=== PATIENT | male | born 1970 | race Caucasian/White ===

== ENCOUNTER 2016-10-02 23:00 | Inpatient (IN) | payer OTHER ==
[~2016-10-02] VITALS: Ht 185.4 cm; Wt 77.6 kg
--- NOTE | ~2016-10-02 | PN ---
Unit #: [id number] #: [id number] Patient: DOROTHY PHILIPPE [id number] [facility] [address] [place] [address] [id number] MR#: [id number] NAME: DOROTHY PHILIPPE. ROOM: P113 Age: 45 Sex: M Admission Date: 10/03/2016 : 1970 Attending Physician: Di Mac M.D. Admitting Physician: Di Mac M.D. Primary Care Physician: Primary Care Physician Ching MICHAUD NOTES DATE OF SERVICE: 10/04/2016 SUBJECTIVE Mr. Philippe is a 45-year-old white male who was seen today and chart was reviewed, and case was discussed with the staff. He has been anxious, withdrawn, and rather seclusive to himself. Meanwhile, he has been cooperative with treatment recommendations and has been taking the medications and tolerating them fairly well with no reported side effects. MENTAL STATUS EXAMINATION Middle-aged white male who was casually dressed with fair personal hygiene, appears to be in no acute distress or discomfort. He was awake and alert on interaction with intact orientation. His mood was anxious and depressed with a congruent affect. His speech was slow and goal directed. He denies any suicidal or homicidal ideations, and also denies any auditory or visual hallucinations. His insight and judgment remain slightly impaired. TREATMENT PLAN 1. We will continue him on his current medications and treatment protocol. We will monitor his response and make further adjustments as needed. 2. We will continue to follow up. Dictated by... Mathew Em/choco TD: 10/04/2016 11:35 JOB #: [id number] Unit #: [id number] #: [id number] Patient: DOROTHY PHILIPPE PEAHOMAR PROGRESS NOTES Page 1 of 1 X Di Mac MD PROGRESS NOTE
--- NOTE | ~2016-10-02 | DS ---
Unit #: [id number] #: [id number] Patient: DOROTHY HAAS [id number] [facility] [address] [place] [address] [id number] I MR#: [id number] NAME: DOROTHY HAAS. ROOM: [facility] Age: 45 Sex: M Admission Date: 10/03/2016 : 1970 Discharge Date: 10/07/2016 Attending Physician: Di Mac M.D. Primary Care Physician: Primary Care Physician No DISCHARGE SUMMARY IDENTIFYING DATA Mr. Haas is a 45-year-old single white male, who is a resident of [place], [place], and was self-referred to the hospital on a voluntary basis. DISCHARGE DIAGNOSES Psychiatric: Major depressive disorder, recurrent, moderate, without psychotic features. Medical: None. Stressors: Mild psychosocial stressors. HISTORY OF PRESENT ILLNESS Please see initial psychiatric evaluation for details. PAST PSYCHIATRIC HISTORY Please see initial psychiatric evaluation for details. PAST MEDICAL HISTORY Please see initial psychiatric evaluation for details. HOSPITAL COURSE The patient was [facility] and was oriented to the hospital environment. Routine p.r.n. medications were initiated, and he was started back on his home medications and medications were adjusted and he was closely monitored. However, he was refusing to take any antidepressant therapy stating that he is not depressed and was wanting to go home and was denying any suicidal or homicidal ideations and as such, it was decided that he will be discharged home and will continue treatment on an outpatient basis. DISCHARGE MEDICATIONS None. DISCHARGE CONDITION Stable. PROGNOSIS Fair. Dictated by... Di Mac M.D. Unit #: [id number] #: [id number] Patient: DOROTHY HAAS IAA/modl TD: 10/06/2016 07:18 JOB #: [id number] DISCHARGE SUMMARY Page 1 of 1 X Di Mac MD X DISCHARGE SUMMARY
--- NOTE | ~2016-10-02 | HP ---
Unit #: [id number] #: [id number] Patient: ISIAH PHILIPPE [id number] [place] [address] [id number] I MR#: [id number] NAME: ISIAH PHILIPPE. ROOM: 13 Age: 45 Sex: M Admission Date: 10/03/2016 : 1970 Attending Physician: Di Mac M.D. Admitting Physician: Di Mac M.D. Primary Care Physician: Primary Care Physician No HISTORY AND PHYSICAL HISTORY OF PRESENT ILLNESS Isiah is a 45 year old, admitted to [address] [place] [address] with depression and verbalizing wanting to hurt himself. PAST MEDICAL HISTORY Nothing significant. PAST SURGICAL HISTORY Nothing reported. ALLERGIES No known drug allergies. SOCIAL HISTORY He smokes one pack per day, drinks alcohol rarely, denies illicit drug use. FAMILY HISTORY Medically noncontributory. REVIEW OF SYSTEMS CONSTITUTIONAL: No fever or chills. HEENT: Denies any sore throat, ear pain or runny nose. CARDIOVASCULAR: Denies chest pain, irregular heart rhythm or palpitations. CHEST: Denies shortness of breath or cough. No hemoptysis. GASTROINTESTINAL: Denies nausea, vomiting, diarrhea or chronic constipation. ENDOCRINE: Denies history of increased thirst or urination. No recent significant weight loss or gain. GENITOURINARY: Denies dysuria, frequency, or hematuria. SKIN: Denies any rashes. HEMATOLOGIC: Denies history of increased bleeding or bruising. MUSCULOSKELETAL: Denies any hot, swollen joints. No generalized muscle pain. NEUROLOGIC: Denies problems with vision or speech. No frequent, severe headaches. No numbness, tingling or weakness in any extremities. Denies loss of bladder or bowel control. CURRENT MEDICATIONS 1. Milk of magnesia p.r.n. 2. Maalox p.r.n. 3. Tylenol p.r.n. 4. Nicotine patch 14 mg daily Unit #: [id number] #: [id number] Patient: ISIAH PHILIPPE PHYSICAL EXAMINATION GENERAL: Alert, well-nourished, no apparent distress. VITAL SIGNS: Blood pressure 110/70, heart rate 80, respirations 16, and temperature 98.6. WEIGHT: 171 pounds. HEIGHT: 6 feet 1 inch. SKIN: Warm and dry without rash or lesion. HEENT: Normocephalic. TMs not viewed. Oral and nasal passages clear. Conjunctivae clear. PERRLA. EOMs intact. NECK: Supple without lymphadenopathy or thyromegaly. HEART: Regular rate and rhythm without murmur. LUNGS: Clear. ABDOMEN: Soft, nontender. : Not done. EXTREMITIES: No evidence of cyanosis, clubbing or edema. Moves all without focal deficit. NEUROLOGICAL: Grossly within normal limits. Cranial Nerves: II: Visual maldonado are intact. III, IV AND : Extraocular movements are intact. Pupils are equal, round and reactive to light. V: Facial sensation is grossly normal. VII: Facial movements and expression are normal. VIII: Auditory acuity grossly intact. IX, X: Uvula is midline. Phonation is normal. XI: Patient shrugs shoulders and turns head normally. XII: Tongue protrudes in the midline. Sensory and Motor Function: Sensory and motor sensation is grossly normal. Motor: moves all extremities well. Coordination: Gait is normal. Deep Tendon Reflexes: Intact. IMPRESSION Psychiatric admission. RECOMMENDATIONS Psychiatric, per psychiatrist. MEDICAL I see no contraindications to participating in facility's activities. MEDICAL PROGNOSIS Good. MEDICAL CONDITION Stable. Dictated by... Arian LamASumeet. for Mathew Lea/daryn TD: 10/04/2016 13:15 JOB #: [id number] Unit #: [id number] #: [id number] Patient: JOSE MARTINISIAH tEhan HISTORY AND PHYSICAL Page 1 of 1 X Socorro Tran HISTORY AND PHYSICAL
--- NOTE | ~2016-10-02 | PN ---
Unit #: [id number] #: [id number] Patient: DOROTHY HAAS [id number] [facility] [address] [place] [address] [id number] I MR#: [id number] NAME: DOROTHY HAAS. ROOM: P113 Age: 45 Sex: M Admission Date: 10/03/2016 : 1970 Attending Physician: Di Mac M.D. Admitting Physician: Di Mac M.D. Primary Care Physician: Primary Care Physician Ching MICHAUD NOTES DATE OF SERVICE 10/05/2016 DISCUSSION Mr. Haas is a 45-year-old white male who was seen today. Chart was reviewed and case was discussed with the staff. He has been anxious, withdrawn, and rather seclusive to himself. Meanwhile, he has been cooperative with treatment recommendations and has been taking the medications and tolerating them fairly well with no reported side effects. MENTAL STATUS EXAMINATION Middle-aged white male who is casually dressed with fair personal hygiene, appears to be in no acute distress or discomfort. He was awake and alert on interaction with intact orientation. His mood is anxious with congruent affect. His speech is slow and goal-directed. He denies any suicidal or homicidal ideations. His insight and judgment remain slightly impaired. TREATMENT PLAN 1. We will continue him on his current medications and treatment protocol. We will monitor his response to the medications and make further adjustments as needed. 2. We will continue to follow up. Dictated by... Di Mac M.D. IAA/bzg TD: 10/05/2016 11:53 JOB #: [id number] Unit #: [id number] #: [id number] Patient: DOROTHY HAAS KIRAN PROGRESS NOTES Page 1 of 1 X Di Mac MD X PROGRESS NOTE
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
[2016-10-04 12:31] LABS: BASOPHIL# 0.1 X10e3 (0-0.3); BASOPHIL% 0.7 % (0-2.5); EOSINOPHIL# 0.1 X10e3 (0-0.7); EOSINOPHIL% 0.8 % (0.0-7.0); HEMATOCRIT 47.4 % (38.0-50.0); HEMOGLOBIN 15.6 gm/dL (13.0-16.0); LYMPHOCYTE# 1.4 X10e3 (1.0-3.5); LYMPHOCYTE% 14.8 % (17.0-45.0); MEAN CELL VOLUME 90.5 FL (83-96); MEAN CORPUSCULAR HEMOGLOBIN 29.7 PG (28-34); MEAN CORPUSCULAR HGB CONC 32.8 g/dL (30-36); MEAN PLATELET VOLUME 9.8 FL (6.5-11.5); MONOCYTE# 0.7 X10e3 (0-1.0); MONOCYTE% 6.7 % (3.0-12.0); NEUTROPHIL# 7.5 X10e3 (1.5-7.1); PLATELET COUNT 203 X10e3 (140-420); RED BLOOD COUNT 5.24 X10e (3.90-5.60); RED CELL DISTRIBUTION WIDTH 12.7 % (11.0-15.5); WHITE BLOOD COUNT 9.7 X10e3 (4.0-10.5)
[2016-10-04 12:39] LABS: DIFF IND NO
[2016-10-04 12:43] LABS: ALBUMIN SERUM 4.6 g/dL (3.5-5.0); BILIRUBIN,TOTAL 1.1 mg/dL (0.2-2.0); BUN/CREATININE RATIO 18.18; CALCIUM SERUM 9.4 mg/dL (8.4-10.2); CREATININE SERUM 1.1 mg/dL (0.6-1.4); GLOM FILT RATE Estimated 79.5 mL/min (>60); POTASSIUM 4.4 mmol/L (3.5-5.1); PROTEIN TOTAL SERUM 7.3 g/dL (6.0-8.3)
== END 2016-10-07 09:45 | disposition home or self-care (01) | DRG 885 ==
LOC: POF 10-03 13:33 → P1S 10-03 13:33
PROVIDERS: Psychiatry & Neurology Psychiatry
DX: F33.1 Major depressive disorder, recurrent, moderate (principal); F17.210 Nicotine dependence, cigarettes, uncomplicated; Z56.0 Unemployment, unspecified
CPT/HCPCS: 80053; 85025